=== PATIENT | female | born 1985 | race Caucasian/White ===

== ENCOUNTER → 2024-02-07 | Outpatient (REF) | payer OTHER, MEDICAID | LOC: M LAB REF 18:33 | PROVIDERS: ATTEND Physician Assistant | DX: B34.9 Viral infection, unspecified (principal) ==

== ENCOUNTER → 2024-02-17 | Outpatient (CLI) | payer OTHER, MEDICAID | LOC: M WUC 14:41 | PROVIDERS: ATTEND Internal Medicine | DX: J06.9 Acute upper respiratory infection, unspecified (principal) ==

== ENCOUNTER → 2024-06-08 | Outpatient (CLI) | payer MEDICAID, OTHER | LOC: M PLAIMG 14:48 | PROVIDERS: ATTEND Physician Assistant | DX: R43.0 Anosmia (principal); J32.4 Chronic pansinusitis; J34.2 Deviated nasal septum ==

== ENCOUNTER 2024-09-26 11:37 | Day surgery (SDC) | payer OTHER ==
[~2024-09-26] VITALS: Ht 167.6 cm; Wt 77.1 kg
[~2024-09-26 11:37] MED LIST: FLUO-365 PO; THERTAB52 PO
[2024-09-26] MEDS ORDERED: LR 1,000 ML IV SCH ×2 (12:00→16:55)
[2024-09-26] MEDS ORDERED: ACETAMINOPHEN 1000MG/100ML IV BAG As Ordered ONE (12:22)
[2024-09-26] MEDS ORDERED: ONDANSETRON 4MG 2ML VIAL As Ordered ONE (12:22)
[2024-09-26] MEDS ORDERED: ROCURONIUM BROMIDE 50MG/5ML VIAL As Ordered ONE (12:23)
[2024-09-26] MEDS ORDERED: LIDOCAINE 2% 100MG/5ML SDV (FOR ANES.) As Ordered ONE (12:23)
[2024-09-26] MEDS ORDERED: SUGAMMADEX SODIUM 500 MG/5 ML VIAL As Ordered ONE (12:23)
[2024-09-26] MEDS ORDERED: propofoL 200 MG/20 ML VIAL As Ordered ONE (12:23)
[2024-09-26] MEDS ORDERED: fentaNYL 100 MCG/2 ML INJECTION As Ordered ONE (13:34)
[2024-09-26] MEDS ORDERED: REMIFENTANIL 1MG 3ML VIAL As Ordered ONE (13:34)
[2024-09-26] MEDS ORDERED: MIDAZOLAM INJ 2MG/2ML VIAL As Ordered ONE (13:35)
[2024-09-26] MEDS: COCAINE 4% 4ML NASAL SOLUTION BTL As Ordered ONE (14:15)
[2024-09-26] MEDS: OXYMETAZOLINE 0.05% NASAL SPRAY As Ordered ONE (14:15)
[2024-09-26] MEDS ORDERED: GLYCOPYRROLATE INJ 0.2 MG/ML 2 ML VIAL As Ordered ONE (15:11)
[2024-09-26] MEDS: LIDOCAINE W/EPINEPHRINE 1% 20ML VIAL As Ordered ONE (16:37)
[2024-09-26] MEDS ORDERED: fentaNYL 100 MCG/2 ML INJECTION IV PRN (16:55)
[2024-09-26] MEDS ORDERED: oxyCODONE 5MG TAB PO PRN (16:55)
[2024-09-26] MEDS: ONDANSETRON 4MG 2ML VIAL IV PRN (17:09)
[2024-09-26] MEDS: HYDROMORPHONE HCL 0.5 MG/ 0.5 ML SYRINGE IV PRN (17:10)
[2024-09-26 17:36] VITALS: BP 142/85; TEMP 97.8; O2SAT 95
== END 2024-09-26 18:05 | disposition home or self-care (01) ==
LOC: M SDC 11:37
PROVIDERS: ATTEND Otolaryngology
DX: J32.8 Other chronic sinusitis (principal); J34.2 Deviated nasal septum; J34.3 Hypertrophy of nasal turbinates; F41.9 Anxiety disorder, unspecified; Z79.899 Other long term (current) drug therapy; Z87.891 Personal history of nicotine dependence
CPT/HCPCS: 30140; 30520; 31240; 31257; 31267; 31276; 61782; 81025; 88305; C9143; J0131; J1100; J1171; J1596; J2250; J2405; J3010